=== PATIENT | female | born 1935 | race African-American/Black ===

== ENCOUNTER 2019-07-29 23:04 | Inpatient (IN) ==
[2019-07-30 00:53] LABS: Basophils # 0.1 10*3/uL (0.0-0.2); Basophils % 0.6 % (0.0-0.8); Eosinophils % 0.3 % (0.00-10.9); Hematocrit 28.6 VOL% (35.7-47.0); Hemoglobin 9.2 GM/DL (12.0-16.0); Immature Granulocytes % 0.6 %; Immature Granulocytes Absolute 0.07 #; Lymphocytes # 2.2 10*3/uL (1.4-4.0); Lymphocytes % 20.1 % (21.3-54.2); Mean Corpuscular HGB Conc 32.2 GM/DL (32-36); Mean Corpuscular Volume 93.2 FL (87-102); Mean Platelet Volume 10.5 FL (9.6-12.0); Monocytes % 12.1 % (1.7-12.7); Neutrophils % 66.3 % (38.7-73.9); Platelet Count 316 T/CUMM (130-400); Red Blood Count 3.07 MC/CUMM (3.8-5.5); Red Cell Distribution Width 12.8 % (9.3-17.3); White Blood Count 10.9 T/CUMM (4-12)
[2019-07-30 01:07] LABS: INR 1.2; PT Patient Result 12.4 SECS (9.8-11.9)
[2019-07-30 01:12] LABS: Albumin 2.1 G/DL (3.4-5.0); Bilirubin,Total 0.7 MG/DL (0.2-1.0); Calcium 8.8 MG/DL (8.5-10.1); Osmolality,Calculated 269.2 MOS/KG (273-304); Total Protein 7.5 G/DL (6.4-8.3)
[2019-07-30] MEDS ORDERED: ONDANSETRON 4 MG/2 ML VIAL IV PRN (01:55)
[2019-07-30] MEDS ORDERED: ACETAMINOPHEN 325 MG TABLET PO PRN (01:55)
[2019-07-30] MEDS ORDERED: hydrALAZINE 20 MG/1 ML VIAL IV PRN (01:55)
[2019-07-30] MEDS ORDERED: DEXTROSE 10% 250 ML BAG IV PRN (01:55)
[2019-07-30] MEDS ORDERED: DOCUSATE SODIUM 100 MG CAPSULE PO PRN (01:55)
[2019-07-30] MEDS ORDERED: GLUCAGON 1 MG VIAL IM PRN (01:55)
[2019-07-30] MEDS ORDERED: MORPHINE 4 MG/1 ML VIAL IV PRN ×2 (01:55→09:58)
[2019-07-30] MEDS: SODIUM CHLORIDE 0.9% 1,000 ML IV SCH ×2 (03:07→10:19)
[2019-07-30 07:03] LABS: Apearance,Urine Slightly Hazy (Clear); Bacteria,Urine Occasional /HPF (Few); Bilirubin,Urine Negative (Negative); Blood, Urine Moderate mg/dL (Negative); Glucose,Urine (UA) Negative (Negative); Ketones,Urine Negative (Negative); Mucus,Urine Occasional /LPF (Occasional); Nitrite,Urine Negative (Negative); Protein,Urine Negative; RBC,Urine 11 /HPF (0-4); Squamous Epithelial Cell,Urine Occasional /HPF (0-10); Urine Color Yellow (Yellow); Urine Specific Gravity 1.012 (1.001-1.035); WBC,Urine 131 /HPF (0-6)
[2019-07-30] MEDS ORDERED: ENOXAPARIN 40 MG/0.4 ML SYRINGE SUBCUT SCH (08:00)
[2019-07-30] MEDS ORDERED: MORPHINE 4 MG/1 ML VIAL IV SCH (10:00)
[2019-07-30] MEDS: INSULIN LISPRO 100 UNIT/ML SUBCUT SCH ×2 (10:18→14:16)
[2019-07-30 15:51] VITALS: BP 125/51
[2019-07-30] MEDS ORDERED: TOPIRAMATE 100 MG TABLET PO SCH (21:00)
[2019-07-30] MEDS ORDERED: risperiDONE 1 MG TABLET PO SCH (21:00)
[2019-07-31] MEDS ORDERED: ASPIRIN 325 MG TABLET PO SCH (09:00)
[2019-07-31] MEDS ORDERED: POTASSIUM CHLORIDE 20 MEQ TABLET PO SCH (09:00)
[2019-07-31] MEDS ORDERED: FUROSEMIDE 20 MG TABLET PO SCH (09:00)
== END 2019-07-30 16:08 | disposition home or self-care (01) | DRG 563 ==
LOC: EDUNIT# → EDBD → N.ED 23:04 → N.EDINP 07-30 01:03 → N.3E 07-30 01:53
PROVIDERS: ADMIT Emergency Medicine; ATTEND Emergency Medicine